=== PATIENT | female | born 1985 | race Caucasian/White ===

== ENCOUNTER 2021-03-06 05:46 | Inpatient (IN) | payer OTHER ==
[2021-03-06] MEDS ORDERED: ceFAZolin 2 GM in Premix Bag 1 BAG IV ONE (06:18)
[2021-03-06] MEDS ORDERED: Azithromycin 500 MG in Sodium Chloride 0.9% 250 ML IV ONE (06:18)
[2021-03-06] MEDS ORDERED: Metoclopramide 10 MG/2 ML SDV IVPUSH ONE (06:18)
[2021-03-06] MEDS ORDERED: Citric Acid/Sodium Citrate Solution 30 ML Cup PO ONE (06:18)
[2021-03-06] MEDS ORDERED: Sodium Chloride 0.9% 10 ML Syringe FLUSH PRN (06:18)
[2021-03-06] MEDS ORDERED: Oxytocin/Lactated Ringers 10 UNIT/1,000 ML BAG IV SCH (06:30)
[2021-03-06] MEDS ORDERED: Lactated Ringers 1,000 ML IV SCH (06:30)
--- NOTE | 2021-03-06 07:00 | PCM.OPNOTE ---
- General Post-Op/Procedure Note Date of Surgery/Procedure: 03/06/21 Operative Procedure(s): Primary low transverse Findings: Baby boy in breech presentation. APGARS of 9 & 9. Weight of 7 lbs 11 oz. Normal appearance of the uterus other than small subserosal fibroid on anterior surface. Normal appearance of the fallopian tubes and ovaries. Pre Op Diagnosis: 39 6/7 weeks. Breech presentation. Early labor Post-Op Diagnosis: Same Anesthesia Technique: Spinal Primary Surgeon: Jennifer Cullen Secondary Surgeon: Rosalind Wright Anesthesia Provider: Ivana Reynaga Reason Food Service Clerk Was Necessary: BMI of patient. Speed/safety of procedure Pathology: Cord blood collected. Placenta discarded. Fluid Replacement, Intraop: 1,600 Output, Urine Amount: 50 EBL in mLs: 1,000 Complications: None Condition: Good Free Text/Narrative:: The risks, benefits, indications, potential complications, and alternatives were explained to the patient and informed consent obtained. After induction of anesthesia, the patient was placed in a supine position and then draped and prepped in the usual sterile manner. A Pfannenstiel incision was made and carried down through the subcutaneous tissue to the fascia. Fascial incision was made and extended transversely. The fascia was from the underlying rectus tissue superiorly and inferiorly. The peritoneum was identified and entered. Peritoneal incision was extended longitudinally. The utero-vesical peritoneal reflection was incised transversely and the bladder flap was bluntly freed from the lower uterine segment. A low transverse uterine incision was made sharply with a scalpel and extended bluntly in a cephalocaudad direction. A baby boy was delivered from a breech presentation with APGARS as above. After the umbilical cord was clamped and cut cord blood was obtained for evaluation. The placenta was removed intact and appeared normal. The uterus was exteriorized and cleared of clots. The uterine outline, tubes and ovaries appeared normal. The uterine incision was closed with running locked sutures of 0 Vicryl. Hemostasis was obtained with a second imbricating layer of 0 Vicryl. The uterus was then placed back into the abdomen. Slight oozing noted from the left aspect of hysterotomy. FloSeal placed in this location with good hemostasis noted. The fascia was then reapproximated with running sutures of 0 Vicryl. The subcutaneous tissue was irrigated with sterile warm normal saline, hemostasis obtained with cautery. This layer was closed with a running 0 Vicryl. The skin was reapproximated with running Subcuticular 4-0 Monocryl sutures. Instrument, sponge, and needle counts were correct prior the abdominal closure and at the conclusion of the case.
--- NOTE | 2021-03-06 07:15 | PCM.PREANE ---
Preanesthetic Assessment - Procedure Proposed Procedure: C section - Anesthesia/Transfusion/Family Hx Anesthesia History: Prior Anesthesia Reaction Type of Anesthesia Reaction: Excessive Nausea/Vomiting Family History of Anesthesia Reaction: No Transfusion History: No Prior Transfusion(s) Intubation History: Unknown - Review of Systems General: No Symptoms Pulmonary: No Symptoms Cardiovascular: No Symptoms Gastrointestinal: Abdominal Pain (contractions) Neurological: No Symptoms Other: Reports: None - Physical Assessment NPO Status Date: 03/05/21 NPO Status Time: 22:00 Vital Signs: 144/83 67 98 RA 16 Height: 1.57 m Weight: 91.626 kg ASA Class: 2 Mental Status: Alert & Oriented x3 Dentition: Reports: Normal Dentition Thyro-Mental Finger Breadths: 3 Mouth Opening Finger Breadths: 2 ROM/Head Extension: Full Lungs: Clear to Auscultation, Normal Respiratory Effort Cardiovascular: Regular Rate, Regular Rhythm - Lab Values: Reviewed and okay to proceed - Allergies Allergies/Adverse Reactions: Allergies Allergy/AdvReac Type Severity Reaction Status Date / Time pollen Allergy Mild Hives Uncoded 01/01/21 12:58 cats Allergy congestion Uncoded 01/01/21 12:59 - Blood Blood Available: Yes Product(s) Available: PRBC - Anesthesia Plan Pre-Op Medication Ordered: Antacids - Acknowledgements Anesthesia Type Planned: Spinal Pt an Appropriate Candidate for the Planned Anesthesia: Yes Alternatives and Risks of Anesthesia Discussed w Pt/Guardian: Yes Pt/Guardian Understands and Agrees with Anesthesia Plan: Yes PreAnesthesia Questionnaire Gastrointestinal History: Reports: GERD BUSINESS RISK ANALYST History: Reports: Other Musculoskeletal History: carpal tunnel - Past Surgical History HEENT Surgical History: Reports: Oral Surgery Other HEENT Surgeries/Procedures: Teeth extraction Female Surgical History: Reports: Other (See Below) Other Female Surgeries/Procedures: Uterine cyst removal - SUBSTANCE USE Tobacco Use Status *Q: Never Tobacco User Tobacco Use Within Last Twelve Months: No Second Hand Smoke Exposure: No Recreational Drug Use History: No - CURRENT (IN HOUSE) MEDS Current Meds: Current Medications Lactated Ringer's (Ringers, Lactated) 1,000 mls @ 125 mls/hr IV ASDIRECTED [facility] Last Admin: 03/06/21 06:54 Dose: 125 mls/hr Documented by: Oxytocin/Lactated Ringer's (Pitocin In Lr 10 Units/1,000 Ml) 10 unit in 1,000 mls @ 100 mls/hr IV ASDIRECTED JANINA Azithromycin 500 mg/ Sodium (Chloride) 250 mls @ 250 mls/hr IV ONETIME ONE Stop: 03/06/21 07:17 Sodium Chloride (Sodium Chloride 0.9% 10 Ml Syringe) 10 ml FLUSH ASDIRECTED PRN PRN Reason: Keep Vein Open Discontinued Medications Citric Acid/Sodium Citrate (Citric Acid/Sodium Citrate Solution 30 Ml Cup) 30 ml PO ONETIME ONE Stop: 03/06/21 06:19 Cefazolin Sodium/Dextrose 2 gm (/ Premix) 50 mls @ 100 mls/hr IV ONETIME ONE Stop: 03/06/21 06:47 Metoclopramide HCl (Metoclopramide 10 Mg/2 Ml Sdv) 10 mg IVPUSH ONETIME ONE Stop: 03/06/21 06:19
[2021-03-06] MEDS ORDERED: Morphine PF 10 MG/10 ML SDV ONE (07:29)
[2021-03-06] MEDS ORDERED: ceFAZolin 1 GM Vial ONE (07:29)
[2021-03-06] MEDS ORDERED: Oxytocin 10 Units/1 ML SDV ONE (07:29)
[2021-03-06] MEDS ORDERED: ePHEDrine 50 MG/ML SDV ONE (07:31)
[2021-03-06] MEDS ORDERED: Propofol 200 MG/20 ML SDV ONE (07:31)
[2021-03-06] MEDS ORDERED: Ketorolac 30 MG/ML SDV ONE (07:33)
[2021-03-06] MEDS ORDERED: Ondansetron 4 MG/2 ML SDV ONE (07:33)
[2021-03-06] MEDS ORDERED: Lactated Ringers 1,000 ML ONE ×2 (08:13)
[2021-03-06] MEDS ORDERED: fentaNYL 100 MCG/2 ML SDV IVPUSH PRN (08:40)
[2021-03-06] MEDS ORDERED: Ondansetron 4 MG/2 ML SDV IVPUSH PRN (08:40)
[2021-03-06] MEDS ORDERED: diphenhydrAMINE 50 MG/ML SDV IVPUSH PRN ×2 (08:40→10:27)
[2021-03-06] MEDS ORDERED: Meperidine 50 MG/ML Vial IVPUSH PRN (08:40)
--- NOTE | 2021-03-06 08:40 | PCM.POSTAN ---
POST ANESTHESIA ASSESSMENT - MENTAL STATUS Mental Status: Alert, Oriented - VITAL SIGNS Vital Signs: Last Vital Signs Temp 97.3 F 03/06/21 07:31 Pulse 87 03/06/21 07:31 Resp 15 03/06/21 07:31 BP 130/73 03/06/21 07:31 Pulse Ox 97 03/06/21 07:31 PACU: 119/73 HR 91 Sat 97 RR 16 97.2 - RESPIRATORY Respiratory Status: Respiratory Rate WNL, Airway Patent, O2 Saturation Stable - CARDIOVASCULAR CV Status: Pulse Rate WNL, Blood Pressure Stable - GASTROINTESTINAL GI Status: No Symptoms - POST OP HYDRATION Hydration Status: Adequate & Stable
[2021-03-06] MEDS ORDERED: Ondansetron 4 MG/2 ML SDV IV PRN (10:27)
[2021-03-06] MEDS ORDERED: Naloxone 0.4 MG/ML SDV IVPUSH PRN (10:27)
[2021-03-06] MEDS ORDERED: Dextrose 5%-Lactated Ringers 1,000 ML IV SCH (10:27)
[2021-03-06] MEDS: Sertraline 50 MG Tab PO SCH (11:55)
[2021-03-06] MEDS: Simethicone 80 MG Tab.Chew PO SCH ×3 (13:32→22:14)
[2021-03-06] MEDS: Ketorolac 30 MG/ML SDV IVPUSH SCH ×2 (14:43→22:14)
[2021-03-06] MEDS ORDERED: Lactated Ringers 500 ML IV ONE (17:30)
[2021-03-07] MEDS: Ketorolac 30 MG/ML SDV IVPUSH SCH (03:58)
[2021-03-07] MEDS: Acetaminophen/oxyCODONE 325-5 MG Tab PO PRN ×4 (05:50→22:16)
[2021-03-07] MEDS: Simethicone 80 MG Tab.Chew PO SCH ×4 (06:56→21:42)
--- NOTE | 2021-03-07 07:24 | PCM.PNPP ---
- General Info Date of Service: 03/07/21 Functional Status: Reports: Pain Controlled, Tolerating Diet, Ambulating, Urinating - Review of Systems General: Reports: No Symptoms Pulmonary: Reports: No Symptoms Cardiovascular: Reports: No Symptoms Gastrointestinal: Reports: Nausea Genitourinary: Reports: No Symptoms Musculoskeletal: Reports: No Symptoms - Patient Data Vital Signs - Most Recent: Last Vital Signs Temp 36.7 C 03/07/21 03:08 Pulse 82 03/07/21 03:08 Resp 14 03/07/21 07:00 BP 112/60 03/07/21 03:08 Pulse Ox 95 03/07/21 07:00 Weight - Most Recent: 91.626 kg I&O - Last 24 Hours: Intake & Output 03/06/21 03/07/21 03/07/21 22:59 06:59 14:59 Intake Total 3500 600 Output Total 470 140 Balance 3030 -360 Lab Results - Last 24 Hours: Laboratory Results - last 24 hr 03/06/21 03/06/21 03/06/21 Range/Units 06:28 06:40 06:40 WBC (3.98-10.04) K/mm3 RBC (3.98-5.22) M/mm3 Hgb (11.2-15.7) gm/dl Hct (34.1-44.9) % MCV (79.4-94.8) fl MCH (25.6-32.2) pg MCHC (32.2-35.5) g/dl RDW Std Deviation (36.4-46.3) fL Plt Count (182-369) K/mm3 MPV (9.4-12.3) fl Neut % (Auto) (34.0-71.1) % Lymph % (Auto) (19.3-51.7) % [place] % (Auto) (4.7-12.5) % Eos % (Auto) (0.7-5.8) Baso % (Auto) (0.1-1.2) % Neut # (Auto) (1.56-6.13) K/mm3 Lymph # (Auto) (1.18-3.74) K/mm3 Preble # (Auto) (0.24-0.36) K/mm3 Eos # (Auto) (0.04-0.36) K/mm3 Baso # (Auto) (0.01-0.08) K/mm3 Manual Slide Review BUN (7-18) mg/dL Creatinine (0.55-1.02) mg/dL Est Cr Clr Drug Dosing mL/min Estimated GFR (MDRD) (>60) mL/min Uric Acid (2.6-6.0) mg/dL AST (15-37) U/L ALT (14-59) U/L Lactate Dehydrogenase (81-234) U/L Ur Random Creatinine 103.4 (30.0-125.0) mg/dL U Random Total Protein 32.7 H (0.0-11.8) mg/dL Protein/Creatinin Ratio 316.2 H (0-149) mg/g RPR Non-reactive (NONREACTIVE) SARS-CoV-2 RNA (CHARLA) (NEGATIVE) Blood Type A POSITIVE Gel Antibody Screen Negative 03/06/21 03/06/21 03/06/21 Range/Units 06:40 06:40 06:40 WBC 16.49 H (3.98-10.04) K/mm3 RBC 4.34 (3.98-5.22) M/mm3 Hgb 13.1 (11.2-15.7) gm/dl Hct 39.7 (34.1-44.9) % MCV 91.5 (79.4-94.8) fl MCH 30.2 (25.6-32.2) pg MCHC 33.0 (32.2-35.5) g/dl RDW Std Deviation 47.5 H (36.4-46.3) fL Plt Count 300 (182-369) K/mm3 MPV 11.1 (9.4-12.3) fl Neut % (Auto) 80.3 H (34.0-71.1) % Lymph % (Auto) 11.0 L (19.3-51.7) % Pre[place] % (Auto) 6.5 (4.7-12.5) % Eos % (Auto) 0.8 (0.7-5.8) Baso % (Auto) 0.2 (0.1-1.2) % Neut # (Auto) 13.23 H (1.56-6.13) K/mm3 Lymph # (Auto) 1.82 (1.18-3.74) K/mm3 Preble # (Auto) 1.07 H (0.24-0.36) K/mm3 Eos # (Auto) 0.14 (0.04-0.36) K/mm3 Baso # (Auto) 0.04 (0.01-0.08) K/mm3 Manual Slide Review Abnormal smear BUN 9 (7-18) mg/dL Creatinine 0.8 (0.55-1.02) mg/dL Est Cr Clr Drug Dosing 76.89 mL/min Estimated GFR (MDRD) > 60 (>60) mL/min Uric Acid 3.3 (2.6-6.0) mg/dL AST 18 (15-37) U/L ALT 14 (14-59) U/L Lactate Dehydrogenase 155 (81-234) U/L Ur Random Creatinine (30.0-125.0) mg/dL U Random Total Protein (0.0-11.8) mg/dL Protein/Creatinin Ratio (0-149) mg/g RPR (NONREACTIVE) SARS-CoV-2 RNA (CHARLA) Negative (NEGATIVE) Blood Type Gel Antibody Screen 03/07/21 Range/Units 05:30 WBC 16.49 H (3.98-10.04) K/mm3 RBC 3.39 L (3.98-5.22) M/mm3 Hgb 10.2 L D (11.2-15.7) gm/dl Hct 31.8 L (34.1-44.9) % MCV 93.8 (79.4-94.8) fl MCH 30.1 (25.6-32.2) pg MCHC 32.1 L (32.2-35.5) g/dl RDW Std Deviation 48.0 H (36.4-46.3) fL Plt Count 251 (182-369) K/mm3 MPV 11.2 (9.4-12.3) fl Neut % (Auto) (34.0-71.1) % Lymph % (Auto) (19.3-51.7) % Preble % (Auto) (4.7-12.5) % Eos % (Auto) (0.7-5.8) Baso % (Auto) (0.1-1.2) % Neut # (Auto) (1.56-6.13) K/mm3 Lymph # (Auto) (1.18-3.74) K/mm3 Preble # (Auto) (0.24-0.36) K/mm3 Eos # (Auto) (0.04-0.36) K/mm3 Baso # (Auto) (0.01-0.08) K/mm3 Manual Slide Review BUN (7-18) mg/dL Creatinine (0.55-1.02) mg/dL Est Cr Clr Drug Dosing mL/min Estimated GFR (MDRD) (>60) mL/min Uric Acid (2.6-6.0) mg/dL AST (15-37) U/L ALT (14-59) U/L Lactate Dehydrogenase (81-234) U/L Ur Random Creatinine (30.0-125.0) mg/dL U Random Total Protein (0.0-11.8) mg/dL Protein/Creatinin Ratio (0-149) mg/g RPR (NONREACTIVE) SARS-CoV-2 RNA (CHARLA) (NEGATIVE) Blood Type Gel Antibody Screen Med Orders - Current: Current Medications Diphenhydramine HCl (Diphenhydramine 50 Mg/Ml Sdv) 25 mg IVPUSH Q6H PRN PRN Reason: Pruritis Diphenhydramine HCl (Diphenhydramine 50 Mg/Ml Sdv) 25 mg IVPUSH Q6H PRN PRN Reason: Itching or Nausea Docusate Sodium (Docusate Sodium 100 Mg Cap) 100 mg PO Q12H PRN PRN Reason: Constipation Fentanyl (Fentanyl 100 Mcg/2 Ml Sdv) 50 mcg IVPUSH Q5M PRN PRN Reason: Pain Ibuprofen (Ibuprofen 600 Mg Tab) 600 mg PO Q6H PRN PRN Reason: mild pain or fever Meperidine HCl (Meperidine 50 Mg/Ml Vial) 25 mg IVPUSH ONETIME PRN PRN Reason: Shivering Naloxone HCl (Naloxone 0.4 Mg/Ml Sdv) 0.1 mg IVPUSH SEECOMMENT PRN PRN Reason: Respiratory Depression Ondansetron HCl (Ondansetron 4 Mg/2 Ml Sdv) 4 mg IVPUSH ONETIME PRN PRN Reason: Nausea/Vomiting Ondansetron HCl (Ondansetron 4 Mg/2 Ml Sdv) 4 mg IV Q8H PRN PRN Reason: Nausea/Vomiting Last Admin: 03/06/21 15:44 Dose: 4 mg Documented by: Oxycodone/Acetaminophen (Acetaminophen/Oxycodone 325-5 Mg Tab) 1 tab PO Q4H PRN PRN Reason: Pain (moderate 4-6) Last Admin: 03/07/21 05:50 Dose: 1 tab Documented by: Oxycodone/Acetaminophen (Acetaminophen/Oxycodone 325-5 Mg Tab) 2 tab PO Q4H PRN PRN Reason: Pain (severe 7-10) Sertraline HCl (Sertraline 50 Mg Tab) 150 mg PO DAILY [facility] Last Admin: 03/06/21 11:55 Dose: 150 mg Documented by: Simethicone (Simethicone 80 Mg Tab.Chew) 160 mg PO QIDACANDBED [facility] Last Admin: 03/07/21 06:56 Dose: 160 mg Documented by: Discontinued Medications Cefazolin Sodium (Cefazolin 1 Gm Vial) Confirm Administered Dose 2 gm .ROUTE .[facility]-MED ONE Stop: 03/06/21 07:30 Citric Acid/Sodium Citrate (Citric Acid/Sodium Citrate Solution 30 Ml Cup) 30 ml PO ONETIME ONE Stop: 03/06/21 06:19 Last Admin: 03/06/21 07:28 Dose: 30 ml Documented by: Ephedrine Sulfate (Ephedrine 50 Mg/Ml Sdv) Confirm Administered Dose 50 mg .ROUTE .STK-MED ONE Stop: 03/06/21 07:32 Lactated Ringer's (Ringers, Lactated) 1,000 mls @ 125 mls/hr IV ASDIRECTED [facility] Last Admin: 03/06/21 06:54 Dose: 125 mls/hr Documented by: Cefazolin Sodium/Dextrose 2 gm (/ Premix) 50 mls @ 100 mls/hr IV ONETIME ONE Stop: 03/06/21 06:47 Oxytocin/Lactated Ringer's (Pitocin In Lr 10 Units/1,000 Ml) 10 unit in 1,000 mls @ 100 mls/hr IV ASDIRECTED [facility] Azithromycin 500 mg/ Sodium (Chloride) 250 mls @ 250 mls/hr IV ONETIME ONE Stop: 03/06/21 07:17 Last Admin: 03/06/21 07:28 Dose: 250 mls/hr Documented by: Lactated Ringer's (Ringers, Lactated) Confirm Administered Dose 1,000 mls @ as directed .ROUTE .STK-MED ONE Stop: 03/06/21 08:14 Lactated Ringer's (Ringers, Lactated) Confirm Administered Dose 1,000 mls @ as directed .ROUTE .STK-MED ONE Stop: 03/06/21 08:14 Dextrose/Lactated Ringer's (Dextrose 5%-Lactated Ringers) 1,000 mls @ 125 mls/hr IV ASDIRECTED JANINA Stop: 03/06/21 18:26 Last Admin: 03/06/21 11:36 Dose: 125 mls/hr Documented by: Lactated Ringer's (Ringers, Lactated) 500 mls @ 999 mls/hr IV BOLUS ONE Stop: 03/06/21 18:00 Last Admin: 03/06/21 17:43 Dose: 999 mls/hr Documented by: Ketorolac Tromethamine (Ketorolac 30 Mg/Ml Sdv) Confirm Administered Dose 30 mg .ROUTE .ST-MED ONE Stop: 03/06/21 07:34 Ketorolac Tromethamine (Ketorolac 30 Mg/Ml Sdv) 30 mg IVPUSH Q6H [facility] Stop: 03/07/21 02:31 Last Admin: 03/07/21 03:58 Dose: 30 mg Documented by: Metoclopramide HCl (Metoclopramide 10 Mg/2 Ml Sdv) 10 mg IVPUSH ONETIME ONE Stop: 03/06/21 06:19 Last Admin: 03/06/21 07:28 Dose: 10 mg Documented by: Miscellaneous Medication (Phenylephrine Hcl In 0.9% Nacl 1 Mg/10 Ml Syringe) Confirm Administered Dose 1 mg .ROUTE .STK-MED ONE Stop: 03/06/21 07:32 Morphine Sulfate (Morphine Pf 10 Mg/10 Ml Sdv) Confirm Administered Dose 10 mg .ROUTE .STK-MED ONE Stop: 03/06/21 07:30 Ondansetron HCl (Ondansetron 4 Mg/2 Ml Sdv) Confirm Administered Dose 4 mg .ROUTE .STK-MED ONE Stop: 03/06/21 07:34 Oxytocin (Oxytocin 10 Units/1 Ml Sdv) Confirm Administered Dose 10 unit .ROUTE .STK-MED ONE Stop: 03/06/21 07:30 Propofol (Propofol 200 Mg/20 Ml Sdv) Confirm Administered Dose 200 mg .ROUTE .STK-MED ONE Stop: 03/06/21 07:32 Sodium Chloride (Sodium Chloride 0.9% 10 Ml Syringe) 10 ml FLUSH ASDIRECTED PRN PRN Reason: Keep Vein Open - Infant Interaction Infant Disposition, : [place] in Room with Family Infant Interaction: Holding Infant Infant Feeding: Attempted ; Nursed Fair/Poor Support Person: - Recovery Exam Fundal Tone: Firm Fundal Level: At Umbilicus Fundal Placement: Midline Lochia Amount: Small Lochia Color: Rubra/Red Perineum Description: Intact, Minimal Bruising/Swelling Episiotomy/Laceration: None - Exam General: Alert, Oriented, Cooperative Lungs: Clear to Auscultation, Normal Respiratory Effort Cardiovascular: Regular Rate, Regular Rhythm GI/Abdominal Exam: Distended, Tender (appropriate post op ) Extremities: Normal Inspection Skin: Warm, Dry, Intact Wound/Incisions: Healing Well, No Drainage, Other (bruising in groin ) - Problem List & Annotations (1) 39 weeks gestation of SNOMED Code(s): 68682840 Code(s): Z3A.39 - 39 WEEKS GESTATION OF Status: Acute Current Visit: Yes (2) Breech presentation SNOMED Code(s): 6795995 Code(s): O32.1XX0 - MATERNAL CARE FOR BREECH PRESENTATION, UNSP Status: Acute Current Visit: Yes Qualifiers: Fetus number: single or unspecified fetus Qualified Code(s): O32.1XX0 - Maternal care for breech presentation, not applicable or unspecified (3) S/P primary low transverse SNOMED Code(s): 524022506, 16010393, 751346949, 644759768, 204664826 Code(s): Z98.891 - HISTORY OF UTERINE SCAR FROM PREVIOUS SURGERY Status: Acute Current Visit: Yes - Problem List Review Problem List Initiated/Reviewed/Updated: Yes - My Orders Last 24 Hours: My Active Orders 03/06/21 06:40 HEP C VIRUS AB [REF] Stat 03/06/21 Breakfast Regular Diet [DIET] 03/06/21 10:27 Acetaminophen/oxyCODONE [Percocet 325-5 MG] 1 tab PO Q4H PRN Acetaminophen/oxyCODONE [Percocet 325-5 MG] 2 tab PO Q4H PRN Docusate Sodium [Colace] 100 mg PO Q12H PRN Naloxone [Narcan] 0.1 mg IVPUSH SEECOMMENT PRN Ondansetron [Zofran] 4 mg IV Q8H PRN Sertraline [Zoloft] 150 mg PO DAILY diphenhydrAMINE [Benadryl] 25 mg IVPUSH Q6H PRN 03/06/21 10:27 Antiembolic Devices [RC] PER UNIT ROUTINE Communication Order [RC] PER UNIT ROUTINE Intake and Output [RC] Q4H May Shower [RC] PER UNIT ROUTINE Notify Provider Intake and Out [RC] ASDIRECTED RT Incentive Spirometry [RC] Q2HWA Vital Signs [RC] PER UNIT ROUTINE Assess Lochia [WOMSER] Per Unit Routine Assess Uterine Involution [WOMSER] Per Unit Routine Breast Pump [WOMSER] Per Unit Routine Peripheral IV Discontinue [OM.PC] Routine Sequential Compression Device [OM.PC] Per Unit Routine 03/06/21 13:00 Simethicone 160 mg PO QIDACANDBED 03/07/21 08:30 Ibuprofen [Motrin] 600 mg PO Q6H PRN 03/07/21 08:35 Urinary Catheter Removal [RC] Per Unit Routine - Assessment Assessment:: POD#1 - Plan Plan:: * UOP improved overnight. Hb with appropriate drop. No further planned CBC's * Patient more distended with some belching. Reviewed going slow with diet today. Mostly focusing on hydration. Continue simethicone/ambulation/etc * Breast feeding * Discharge home in 2 days
--- NOTE | 2021-03-07 07:41 | PCM48HPAN ---
Post Anesthesia Note - EVALUATION WITHIN 48HRS OF ANESTHETIC Vital Signs in Normal Range: Yes Patient Participated in Evaluation: Yes Respiratory Function Stable: Yes Airway Patent: Yes Cardiovascular Function Stable: Yes Hydration Status Stable: Yes Pain Control Satisfactory: Yes Nausea and Vomiting Control Satisfactory: Yes Mental Status Recovered: Yes Vital Signs: Last Vital Signs Temp 36.7 C 03/07/21 03:08 Pulse 82 03/07/21 03:08 Resp 14 03/07/21 07:00 BP 112/60 03/07/21 03:08 Pulse Ox 95 03/07/21 07:00
[2021-03-07] MEDS: Docusate Sodium 100 MG Cap PO PRN ×2 (09:26→22:16)
[2021-03-07] MEDS: Sertraline 50 MG Tab PO SCH (09:26)
[2021-03-07] MEDS: Ibuprofen 600 MG Tab PO PRN ×2 (10:13→20:56)
[2021-03-07] MEDS ORDERED: Bisacodyl 10 MG Supp RECTAL ONE ×2 (14:57→17:51)
[2021-03-07] MEDS ORDERED: Acetaminophen 325 MG Tab PO PRN (20:22)
[2021-03-07] MEDS ORDERED: Polyethylene Glycol 3350 Powder 17 GM Packet PO PRN (20:22)
[2021-03-07] MEDS ORDERED: HYDROmorphone 0.5 MG/0.5 ML Syringe IVPUSH PRN (20:24)
[2021-03-08] MEDS: Ibuprofen 600 MG Tab PO PRN ×2 (04:05→13:55)
--- NOTE | 2021-03-08 06:40 | PCM.PNPP ---
- General Info Date of Service: 03/08/21 Functional Status: Reports: Pain Controlled, Tolerating Diet, Ambulating, Urinating - Review of Systems General: Reports: No Symptoms Pulmonary: Reports: No Symptoms Cardiovascular: Reports: No Symptoms Gastrointestinal: Reports: Abdominal Pain, Other (bloated) Genitourinary: Reports: No Symptoms Musculoskeletal: Reports: No Symptoms Neurological: Reports: No Symptoms - Patient Data Vital Signs - Most Recent: Last Vital Signs Temp 36.7 C 03/07/21 20:26 Pulse 86 03/07/21 20:26 Resp 14 03/07/21 20:26 BP 124/74 03/07/21 20:26 Pulse Ox 94 L 03/07/21 20:26 Weight - Most Recent: 91.626 kg I&O - Last 24 Hours: Intake & Output 03/07/21 03/07/21 03/08/21 14:59 22:59 06:59 Intake Total 320 Output Total 50 Balance -50 320 Med Orders - Current: Current Medications Acetaminophen (Acetaminophen 325 Mg Tab) 650 mg PO Q4H PRN PRN Reason: Pain Diphenhydramine HCl (Diphenhydramine 50 Mg/Ml Sdv) 25 mg IVPUSH Q6H PRN PRN Reason: Itching or Nausea Docusate Sodium (Docusate Sodium 100 Mg Cap) 100 mg PO Q12H PRN PRN Reason: Constipation Last Admin: 03/07/21 22:16 Dose: 100 mg Documented by: Hydromorphone HCl (Hydromorphone 0.5 Mg/0.5 Ml Syringe) 0.5 mg IVPUSH Q2H PRN PRN Reason: Pain Ibuprofen (Ibuprofen 600 Mg Tab) 600 mg PO Q6H PRN PRN Reason: mild pain or fever Last Admin: 03/08/21 04:05 Dose: 600 mg Documented by: Naloxone HCl (Naloxone 0.4 Mg/Ml Sdv) 0.1 mg IVPUSH SEECOMMENT PRN PRN Reason: Respiratory Depression Ondansetron HCl (Ondansetron 4 Mg/2 Ml Sdv) 4 mg IV Q8H PRN PRN Reason: Nausea/Vomiting Last Admin: 03/06/21 15:44 Dose: 4 mg Documented by: Oxycodone/Acetaminophen (Acetaminophen/Oxycodone 325-5 Mg Tab) 1 tab PO Q4H PRN PRN Reason: Pain (moderate 4-6) Last Admin: 03/07/21 22:16 Dose: 1 tab Documented by: Oxycodone/Acetaminophen (Acetaminophen/Oxycodone 325-5 Mg Tab) 2 tab PO Q4H PRN PRN Reason: Pain (severe 7-10) Last Admin: 03/07/21 17:37 Dose: 2 tab Documented by: Polyethylene Glycol (Polyethylene Glycol 3350 Powder 17 Gm Packet) 17 gm PO BEDTIME PRN PRN Reason: Constipation Sertraline HCl (Sertraline 50 Mg Tab) 150 mg PO DAILY [facility] Last Admin: 03/07/21 09:26 Dose: 150 mg Documented by: Simethicone (Simethicone 80 Mg Tab.Chew) 160 mg PO QIDACANDBED [facility] Last Admin: 03/07/21 21:42 Dose: 160 mg Documented by: Discontinued Medications Bisacodyl (Bisacodyl 10 Mg Supp) 10 mg RECTAL ONETIME ONE Stop: 03/07/21 14:58 Last Admin: 03/07/21 18:16 Dose: Not Given Documented by: Bisacodyl (Bisacodyl 10 Mg Supp) 10 mg RECTAL ONETIME ONE Stop: 03/07/21 17:52 Last Admin: 03/07/21 17:59 Dose: 10 mg Documented by: Cefazolin Sodium (Cefazolin 1 Gm Vial) Confirm Administered Dose 2 gm .ROUTE .STK-MED ONE Stop: 03/06/21 07:30 Citric Acid/Sodium Citrate (Citric Acid/Sodium Citrate Solution 30 Ml Cup) 30 ml PO ONETIME ONE Stop: 03/06/21 06:19 Last Admin: 03/06/21 07:28 Dose: 30 ml Documented by: Diphenhydramine HCl (Diphenhydramine 50 Mg/Ml Sdv) 25 mg IVPUSH Q6H PRN PRN Reason: Pruritis Ephedrine Sulfate (Ephedrine 50 Mg/Ml Sdv) Confirm Administered Dose 50 mg .ROUTE .STK-MED ONE Stop: 03/06/21 07:32 Fentanyl (Fentanyl 100 Mcg/2 Ml Sdv) 50 mcg IVPUSH Q5M PRN PRN Reason: Pain Lactated Ringer's (Ringers, Lactated) 1,000 mls @ 125 mls/hr IV ASDIRECTED [facility] Last Admin: 03/06/21 06:54 Dose: 125 mls/hr Documented by: Cefazolin Sodium/Dextrose 2 gm (/ Premix) 50 mls @ 100 mls/hr IV ONETIME ONE Stop: 03/06/21 06:47 Oxytocin/Lactated Ringer's (Pitocin In Lr 10 Units/1,000 Ml) 10 unit in 1,000 mls @ 100 mls/hr IV ASDIRECTED [facility] Azithromycin 500 mg/ Sodium (Chloride) 250 mls @ 250 mls/hr IV ONETIME ONE Stop: 03/06/21 07:17 Last Admin: 03/06/21 07:28 Dose: 250 mls/hr Documented by: Lactated Ringer's (Ringers, Lactated) Confirm Administered Dose 1,000 mls @ as directed .ROUTE .STK-MED ONE Stop: 03/06/21 08:14 Lactated Ringer's (Ringers, Lactated) Confirm Administered Dose 1,000 mls @ as directed .ROUTE .STK-MED ONE Stop: 03/06/21 08:14 Dextrose/Lactated Ringer's (Dextrose 5%-Lactated Ringers) 1,000 mls @ 125 mls/hr IV ASDIRECTED [facility] Stop: 03/06/21 18:26 Last Admin: 03/06/21 11:36 Dose: 125 mls/hr Documented by: Lactated Ringer's (Ringers, Lactated) 500 mls @ 999 mls/hr IV BOLUS ONE Stop: 03/06/21 18:00 Last Admin: 03/06/21 17:43 Dose: 999 mls/hr Documented by: Ketorolac Tromethamine (Ketorolac 30 Mg/Ml Sdv) Confirm Administered Dose 30 mg .ROUTE .STK-MED ONE Stop: 03/06/21 07:34 Ketorolac Tromethamine (Ketorolac 30 Mg/Ml Sdv) 30 mg IVPUSH Q6H [facility] Stop: 03/07/21 02:31 Last Admin: 03/07/21 03:58 Dose: 30 mg Documented by: Meperidine HCl (Meperidine 50 Mg/Ml Vial) 25 mg IVPUSH ONETIME PRN PRN Reason: Shivering Metoclopramide HCl (Metoclopramide 10 Mg/2 Ml Sdv) 10 mg IVPUSH ONETIME ONE Stop: 03/06/21 06:19 Last Admin: 03/06/21 07:28 Dose: 10 mg Documented by: Miscellaneous Medication (Phenylephrine Hcl In 0.9% Nacl 1 Mg/10 Ml Syringe) Confirm Administered Dose 1 mg .ROUTE .STK-MED ONE Stop: 03/06/21 07:32 Morphine Sulfate (Morphine Pf 10 Mg/10 Ml Sdv) Confirm Administered Dose 10 mg .ROUTE .STK-MED ONE Stop: 03/06/21 07:30 Ondansetron HCl (Ondansetron 4 Mg/2 Ml Sdv) Confirm Administered Dose 4 mg .ROUTE .STK-MED ONE Stop: 03/06/21 07:34 Ondansetron HCl (Ondansetron 4 Mg/2 Ml Sdv) 4 mg IVPUSH ONETIME PRN PRN Reason: Nausea/Vomiting Oxytocin (Oxytocin 10 Units/1 Ml Sdv) Confirm Administered Dose 10 unit .ROUTE .STK-MED ONE Stop: 03/06/21 07:30 Propofol (Propofol 200 Mg/20 Ml Sdv) Confirm Administered Dose 200 mg .ROUTE .STK-MED ONE Stop: 03/06/21 07:32 Sodium Chloride (Sodium Chloride 0.9% 10 Ml Syringe) 10 ml FLUSH ASDIRECTED PRN PRN Reason: Keep Vein Open - Infant Interaction Disposition, : [place] in Room with Family Interaction: Holding Infant Feeding: Attempted ; Nursed Fair/Poor Support Person: - Recovery Exam Fundal Tone: Firm Fundal Level: 1 Fingerbreadths Below Umbilicus Fundal Placement: Midline Lochia Amount: Small Lochia Color: Rubra/Red Perineum Description: Intact, Minimal Bruising/Swelling Episiotomy/Laceration: None Bladder Status: Voiding Urinary Elimination: Voided Other Urinary Elimination, : Pt has not voided since Catheter removal at 0400 - Exam General: Alert, Oriented, Cooperative Lungs: Clear to Auscultation, Normal Respiratory Effort, Crackles Cardiovascular: Regular Rhythm GI/Abdominal Exam: Soft, Distended. No: Guarding, Rigid, Rebound Skin: Warm, Dry, Intact Wound/Incisions: Healing Well, No Drainage - Problem List & Annotations (1) 39 weeks gestation of SNOMED Code(s): 37990307 Code(s): Z3A.39 - 39 WEEKS GESTATION OF Status: Acute Current Visit: Yes (2) Breech presentation SNOMED Code(s): 6177325 Code(s): O32.1XX0 - MATERNAL CARE FOR BREECH PRESENTATION, UNSP Status: Acute Current Visit: Yes Qualifiers: Fetus number: single or unspecified fetus Qualified Code(s): O32.1XX0 - Maternal care for breech presentation, not applicable or unspecified (3) S/P primary low transverse SNOMED Code(s): 829790878, 42365595, 391002971, 507429149, 849322146 Code(s): Z98.891 - HISTORY OF UTERINE SCAR FROM PREVIOUS SURGERY Status: Acute Current Visit: Yes - Problem List Review Problem List Initiated/Reviewed/Updated: Yes - My Orders Last 24 Hours: My Active Orders 03/07/21 08:30 Ibuprofen [Motrin] 600 mg PO Q6H PRN 03/07/21 20:22 Acetaminophen [TylenoL] 650 mg PO Q4H PRN polyethylene glycoL 3350 [MiraLAX] 17 gm PO BEDTIME PRN 03/07/21 20:24 HYDROmorphone [Dilaudid] 0.5 mg IVPUSH Q2H PRN - Assessment Assessment:: POD#2 - Plan Plan:: * Still distended, but with some small amount of gas overnight. Can repeat suppository today. * Breast feeding * Discharge home today vs tomorrow depending upon patient preference
[2021-03-08] MEDS ORDERED: Bisacodyl 10 MG Supp RECTAL PRN (07:16)
[2021-03-08] MEDS: Simethicone 80 MG Tab.Chew PO SCH (08:16)
[2021-03-08] MEDS: Sertraline 50 MG Tab PO SCH (08:17)
[2021-03-08] MEDS: Acetaminophen/oxyCODONE 325-5 MG Tab PO PRN ×2 (10:21→16:08)
[2021-03-08] MEDS: Docusate Sodium 100 MG Cap PO PRN (10:24)
--- NOTE | 2021-03-08 16:46 | PCM.DCSUM1 ---
Discharge Summary - Discharge Data Discharge Date: 03/08/21 Discharge Disposition: Home, Self-Care 01 Condition: Good - Referral to Home Health Primary Care Physician: Jennifer uCllen MD - Discharge Diagnosis/Problem(s) (1) 39 weeks gestation of SNOMED Code(s): 18779945 ICD Code: Z3A.39 - 39 WEEKS GESTATION OF Status: Acute (2) Breech presentation SNOMED Code(s): 1332404 ICD Code: O32.1XX0 - MATERNAL CARE FOR BREECH PRESENTATION, UNSP Status: Acute Qualifiers: Fetus number: single or unspecified fetus Qualified Code(s): O32.1XX0 - Maternal care for breech presentation, not applicable or unspecified (3) S/P primary low transverse SNOMED Code(s): 877562704, 32989380, 388364127, 021186877, 193364071 ICD Code: Z98.891 - HISTORY OF UTERINE SCAR FROM PREVIOUS SURGERY Status: Acute - Patient Summary/Data Operative Procedure(s) Performed: Primary low transverse Complications: None Consults: None Recommended Follow-up Testing/Procedures: Follow up in 3 weeks for / post op check Hospital Course: 35 y/o at 39 6/7 wks with known breech presentation presented in early labor. Taken for PLTCS which was uncomplicated. patient did well. Was discharged home on PPD#2 per her preference. - Patient Instructions Diet: Regular Diet as Tolerated Activity: As Tolerated Activity, Other: Pelvic rest for 6 weeks Driving: Do Not Drive (while taking pain medication ) Showering/Bathing: May Shower, No Tub Bathing/Swimming Wound/Incision Care: Keep Operative Site/Wound Site Clean and Dry Notify Provider of: Fever, Increased Pain, Swelling and Redness, Drainage, Nausea and/or Vomiting - Discharge Plan *PRESCRIPTION DRUG MONITORING PROGRAM REVIEWED*: No *COPY OF PRESCRIPTION DRUG MONITORING REPORT IN PATIENT CANDIDA: No Prescriptions/Med Rec: Acetaminophen/oxyCODONE [Percocet 325-5 MG] 1 - 2 tab PO Q4H PRN #20 tablet PRN Reason: Pain (Severe 7-10) Home Medications: Home Meds Acetaminophen/oxyCODONE [Percocet 325-5 MG] 1 - 2 tab PO Q4H PRN #20 tablet 03/08/21 [Rx] Docusate Sodium [Colace] 100 mg PO Q12H PRN cap 03/08/21 [Rx] Ibuprofen [Motrin] 600 mg PO Q6H PRN tablet 03/08/21 [Rx] Sertraline [Zoloft] 150 mg PO DAILY tablet 03/08/21 [Rx] Simethicone 160 mg PO QIDACANDBED tab.chew 03/08/21 [Rx] Patient Handouts: Delivery, Care After, Preventing Constipation After Surgery Referrals: Jennifer Cullen MD [Primary Care Provider] - (3 week for check ) - Discharge Summary/Plan Comment DC Time >30 min.: No - Patient Data Vitals - Most Recent: Last Vital Signs Temp 36.7 C 03/08/21 14:28 Pulse 78 03/08/21 14:28 Resp 16 03/08/21 14:28 BP 116/71 03/08/21 14:28 Pulse Ox 95 03/08/21 14:28 Weight - Most Recent: 91.626 kg I&O - Last 24 hours: Intake & Output 03/08/21 03/08/21 03/08/21 06:59 14:59 22:59 Intake Total 1120 300 Balance 1120 300 Lab Results - Last 24 hrs: Laboratory Results - last 24 hr 03/06/21 Range/Units 06:40 Hepatitis C Antibody <0.1 (0.0-0.9) s/co ratio Med Orders - Current: Current Medications Acetaminophen (Acetaminophen 325 Mg Tab) 650 mg PO Q4H PRN PRN Reason: Pain Bisacodyl (Bisacodyl 10 Mg Supp) 10 mg RECTAL Q12H PRN PRN Reason: Gas Last Admin: 03/08/21 08:18 Dose: 10 mg Documented by: Diphenhydramine HCl (Diphenhydramine 50 Mg/Ml Sdv) 25 mg IVPUSH Q6H PRN PRN Reason: Itching or Nausea Docusate Sodium (Docusate Sodium 100 Mg Cap) 100 mg PO Q12H PRN PRN Reason: Constipation Last Admin: 03/08/21 10:24 Dose: 100 mg Documented by: Hydromorphone HCl (Hydromorphone 0.5 Mg/0.5 Ml Syringe) 0.5 mg IVPUSH Q2H PRN PRN Reason: Pain Ibuprofen (Ibuprofen 600 Mg Tab) 600 mg PO Q6H PRN PRN Reason: mild pain or fever Last Admin: 03/08/21 13:55 Dose: 600 mg Documented by: Naloxone HCl (Naloxone 0.4 Mg/Ml Sdv) 0.1 mg IVPUSH SEECOMMENT PRN PRN Reason: Respiratory Depression Ondansetron HCl (Ondansetron 4 Mg/2 Ml Sdv) 4 mg IV Q8H PRN PRN Reason: Nausea/Vomiting Last Admin: 03/06/21 15:44 Dose: 4 mg Documented by: Oxycodone/Acetaminophen (Acetaminophen/Oxycodone 325-5 Mg Tab) 1 tab PO Q4H PRN PRN Reason: Pain (moderate 4-6) Last Admin: 03/08/21 16:08 Dose: 1 tab Documented by: Oxycodone/Acetaminophen (Acetaminophen/Oxycodone 325-5 Mg Tab) 2 tab PO Q4H PRN PRN Reason: Pain (severe 7-10) Last Admin: 03/07/21 17:37 Dose: 2 tab Documented by: Polyethylene Glycol (Polyethylene Glycol 3350 Powder 17 Gm Packet) 17 gm PO BEDTIME PRN PRN Reason: Constipation Sertraline HCl (Sertraline 50 Mg Tab) 150 mg PO DAILY [facility] Last Admin: 03/08/21 08:17 Dose: 150 mg Documented by: Simethicone (Simethicone 80 Mg Tab.Chew) 160 mg PO QIDACANDBED [facility] Last Admin: 03/08/21 08:16 Dose: 160 mg Documented by: Discontinued Medications Bisacodyl (Bisacodyl 10 Mg Supp) 10 mg RECTAL ONETIME ONE Stop: 03/07/21 14:58 Last Admin: 03/07/21 18:16 Dose: Not Given Documented by: Bisacodyl (Bisacodyl 10 Mg Supp) 10 mg RECTAL ONETIME ONE Stop: 03/07/21 17:52 Last Admin: 03/07/21 17:59 Dose: 10 mg Documented by: Cefazolin Sodium (Cefazolin 1 Gm Vial) Confirm Administered Dose 2 gm .ROUTE .STK-MED ONE Stop: 03/06/21 07:30 Citric Acid/Sodium Citrate (Citric Acid/Sodium Citrate Solution 30 Ml Cup) 30 ml PO ONETIME ONE Stop: 03/06/21 06:19 Last Admin: 03/06/21 07:28 Dose: 30 ml Documented by: Diphenhydramine HCl (Diphenhydramine 50 Mg/Ml Sdv) 25 mg IVPUSH Q6H PRN PRN Reason: Pruritis Ephedrine Sulfate (Ephedrine 50 Mg/Ml Sdv) Confirm Administered Dose 50 mg .ROUTE .STK-MED ONE Stop: 03/06/21 07:32 Fentanyl (Fentanyl 100 Mcg/2 Ml Sdv) 50 mcg IVPUSH Q5M PRN PRN Reason: Pain Lactated Ringer's (Ringers, Lactated) 1,000 mls @ 125 mls/hr IV ASDIRECTED [facility] Last Admin: 03/06/21 06:54 Dose: 125 mls/hr Documented by: Cefazolin Sodium/Dextrose 2 gm (/ Premix) 50 mls @ 100 mls/hr IV ONETIME ONE Stop: 03/06/21 06:47 Oxytocin/Lactated Ringer's (Pitocin In Lr 10 Units/1,000 Ml) 10 unit in 1,000 mls @ 100 mls/hr IV ASDIRECTED [facility] Azithromycin 500 mg/ Sodium (Chloride) 250 mls @ 250 mls/hr IV ONETIME ONE Stop: 03/06/21 07:17 Last Admin: 03/06/21 07:28 Dose: 250 mls/hr Documented by: Lactated Ringer's (Ringers, Lactated) Confirm Administered Dose 1,000 mls @ as directed .ROUTE .[facility]-MED ONE Stop: 03/06/21 08:14 Lactated Ringer's (Ringers, Lactated) Confirm Administered Dose 1,000 mls @ as directed .ROUTE .[facility]-MED ONE Stop: 03/06/21 08:14 Dextrose/Lactated Ringer's (Dextrose 5%-Lactated Ringers) 1,000 mls @ 125 mls/hr IV ASDIRECTED [facility] Stop: 03/06/21 18:26 Last Admin: 03/06/21 11:36 Dose: 125 mls/hr Documented by: Lactated Ringer's (Ringers, Lactated) 500 mls @ 999 mls/hr IV [facility]OLUS ONE Stop: 03/06/21 18:00 Last Admin: 03/06/21 17:43 Dose: 999 mls/hr Documented by: Ketorolac Tromethamine (Ketorolac 30 Mg/Ml Sdv) Confirm Administered Dose 30 mg .ROUTE .STK-MED ONE Stop: 03/06/21 07:34 Ketorolac Tromethamine (Ketorolac 30 Mg/Ml Sdv) 30 mg IVPUSH Q6H [facility] Stop: 03/07/21 02:31 Last Admin: 03/07/21 03:58 Dose: 30 mg Documented by: Meperidine HCl (Meperidine 50 Mg/Ml Vial) 25 mg IVPUSH ONETIME PRN PRN Reason: Shivering Metoclopramide HCl (Metoclopramide 10 Mg/2 Ml Sdv) 10 mg IVPUSH ONETIME ONE Stop: 03/06/21 06:19 Last Admin: 03/06/21 07:28 Dose: 10 mg Documented by: Miscellaneous Medication (Phenylephrine Hcl In 0.9% Nacl 1 Mg/10 Ml Syringe) Confirm Administered Dose 1 mg .ROUTE .STK-MED ONE Stop: 03/06/21 07:32 Morphine Sulfate (Morphine Pf 10 Mg/10 Ml Sdv) Confirm Administered Dose 10 mg .ROUTE .STK-MED ONE Stop: 03/06/21 07:30 Ondansetron HCl (Ondansetron 4 Mg/2 Ml Sdv) Confirm Administered Dose 4 mg .ROUTE .STK-MED ONE Stop: 03/06/21 07:34 Ondansetron HCl (Ondansetron 4 Mg/2 Ml Sdv) 4 mg IVPUSH ONETIME PRN PRN Reason: Nausea/Vomiting Oxytocin (Oxytocin 10 Units/1 Ml Sdv) Confirm Administered Dose 10 unit .ROUTE .STK-MED ONE Stop: 03/06/21 07:30 Propofol (Propofol 200 Mg/20 Ml Sdv) Confirm Administered Dose 200 mg .ROUTE .STK-MED ONE Stop: 03/06/21 07:32 Sodium Chloride (Sodium Chloride 0.9% 10 Ml Syringe) 10 ml FLUSH ASDIRECTED PRN PRN Reason: Keep Vein Open
== END 2021-03-08 16:30 | disposition home or self-care (01) | DRG 788 ==
LOC: JD.OBCHECK 05:46 → JD.OB 05:50 → JD.OBCHECK 07:58
PROVIDERS: ADMIT Obstetrics & Gynecology; ATTEND Obstetrics & Gynecology
PROC: 10D00Z1 Extraction of Products of Conception, Low, Open Approach (ICD-10-PCS; principal; 2021-03-06)
DX: O32.1XX0 Maternal care for breech presentation, not applicable or unspecified (principal); Z3A.39 39 weeks gestation of pregnancy; Z37.0 Single live birth; O99.344 Other mental disorders complicating childbirth; F41.9 Anxiety disorder, unspecified; F39 Unspecified mood [affective] disorder; Z20.822 Contact with and (suspected) exposure to COVID-19; O99.62 Diseases of the digestive system complicating childbirth; K21.9 Gastro-esophageal reflux disease without esophagitis; Z91.09 Other allergy status, other than to drugs and biological substances; Z91.048 Other nonmedicinal substance allergy status; Z79.899 Other long term (current) drug therapy
CPT/HCPCS: 01961; 36415; 59025; 82565; 82570; 83615; 84156; 84450; 84460; 84520; 84550; 85025; 85027; 86592; 86803; 86850; 86900; 86901; 94762; A9270-GY; J0456; J0690; J1885; J2270; J2370; J2405; J2590; J2704; J2765; J7050; J7120; J7121; U0002

== ENCOUNTER 2021-03-06 06:53 | Inpatient (IN) | payer OTHER | END 2021-03-08 16:30 | disposition home or self-care (01) | DRG 788 | LOC: JD.OB 06:53 → MERGE 06:53 → JD.OB 07:58 | PROVIDERS: ADMIT Obstetrics & Gynecology; ATTEND Obstetrics & Gynecology | PROC: 10D00Z1 Extraction of Products of Conception, Low, Open Approach (ICD-10-PCS; principal; 2021-03-06) | DX: O32.1XX0 Maternal care for breech presentation, not applicable or unspecified (principal); Z37.0 Single live birth; O99.344 Other mental disorders complicating childbirth; F41.9 Anxiety disorder, unspecified; F39 Unspecified mood [affective] disorder; Z3A.39 39 weeks gestation of pregnancy; Z91.048 Other nonmedicinal substance allergy status; Z91.09 Other allergy status, other than to drugs and biological substances; Z79.899 Other long term (current) drug therapy ==